=== PATIENT | male | born 1975 | race Caucasian/White ===

== ENCOUNTER 2021-02-05 12:44 | Outpatient (REF) | payer OTHER, SELFPAY | END 2021-02-05 12:45 | disposition home or self-care (01) | LOC: HO.LAB 12:44 | PROVIDERS: Visit Provider Internal Medicine | DX: Z20.822 Contact with and (suspected) exposure to COVID-19 (principal) | CPT/HCPCS: 36415; C9803; U0003; U0005 ==

== ENCOUNTER 2021-02-14 13:16 | Outpatient (REF) | payer OTHER, SELFPAY ==
[2021-02-15 07:45] LABS: SARS COV2 PCR INHOUSE POSITIVE (Negative)
== END 2021-02-14 13:17 | disposition home or self-care (01) ==
LOC: HO.LAB 13:16
PROVIDERS: Visit Provider Internal Medicine
DX: Z20.822 Contact with and (suspected) exposure to COVID-19 (principal)
CPT/HCPCS: C9803; U0003